=== PATIENT | female | born 1975 | race Caucasian/White ===

== ENCOUNTER 2024-04-15 16:19 | Inpatient (IN) | payer OTHER ==
[2024-04-15 17:53] VITALS: BMI 27.9
[2024-04-15] MEDS ORDERED: diazePAM 5 MG TABLET PO PRN (19:53)
[2024-04-15] MEDS ORDERED: ACETAMINOPHEN 325 MG TABLET (FP) PO PRN (19:55)
[2024-04-15] MEDS ORDERED: LOPERAMIDE HCL 2 MG CAPSULE PO PRN (19:55)
[2024-04-15] MEDS ORDERED: MAGNESIUM HYDROX 2400MG/30ML ORAL SUSPENSION 30 ML CUP PO PRN (19:55)
[2024-04-15] MEDS ORDERED: METHOCARBAMOL 500 MG TABLET PO PRN (19:55)
[2024-04-15] MEDS ORDERED: IBUPROFEN 400 MG TABLET (FP) PO PRN (19:55)
[2024-04-15] MEDS ORDERED: DICYCLOMINE HCL 10 MG CAPSULE PO PRN (19:55)
[2024-04-15] MEDS ORDERED: hydrOXYzine PAMOATE 25 MG CAPSULE (FP) PO PRN (19:55)
[2024-04-15] MEDS ORDERED: POLYETHYLENE GLYCOL (HEALTHYLAX) 3350 17 GM PACKET PO PRN (19:55)
[2024-04-15] MEDS ORDERED: IBUPROFEN 600 MG TABLET (FP) PO PRN (19:55)
[2024-04-15] MEDS ORDERED: BENZONATATE 200 MG CAPSULE PO PRN (19:55)
[2024-04-15] MEDS ORDERED: BENZOCAINE/MENTHOL (CHLORASEPTIC ) LOZENGE MM PRN (19:55)
[2024-04-15] MEDS ORDERED: MAG HYDROX/AL HYDROX/SIMETH 30 ML UNIT-DOSE CUP PO PRN (19:55)
[2024-04-15] MEDS ORDERED: BISMUTH SUBSALICYLATE 524 MG/30 ML PO PRN (19:55)
[2024-04-15] MEDS ORDERED: ONDANSETRON *ODT* 4 MG TABLET SL PRN (19:55)
[2024-04-15] MEDS ORDERED: guaiFENesin 600 MG TABLET.ER (FP) PO PRN (19:55)
[2024-04-15] MEDS ORDERED: diazePAM 5 MG TABLET ONE (20:17)
[2024-04-15] MEDS: diazePAM 5 MG TABLET PO ONE (20:19)
[2024-04-15] MEDS: MELATONIN 5 MG TABLETS PO SCH (21:18)
[2024-04-15] MEDS: THIAMINE 100 MG TABLET PO SCH (21:18)
[2024-04-15] MEDS: diazePAM 5 MG TABLET PO SCH (23:19)
[2024-04-16 08:53] VITALS: TEMP 97.8
[2024-04-16] MEDS: PRENATAL VITAMINS W/ FOLIC ACID TABLET (FP) PO SCH (10:04)
[2024-04-16 11:04] LABS: HEMATOCRIT 38.3 % (32.4-45.2); HEMOGLOBIN 12.5 GM/dL (10.7-15.3); MCH 29.2 pg (25.7-33.7); MCHC 32.5 g/dl (32.0-36.0); MEAN CELL VOLUME 89.8 fl (80-96); MEAN PLT VOLUME 8.2 fl (7.5-11.1); PLATELET COUNT 251 10^3/uL (134-434); RBC 4.26 M/mm3 (3.60-5.2); RDW 13.7 % (11.6-15.6); WHITE BLOOD COUNT 5.3 K/mm3 (4.0-10.0)
[2024-04-16 11:53] LABS: CHLORIDE 107 mmol/L (98-107); POTASSIUM 4.4 mmol/L (3.5-5.1); SODIUM 136 mmol/L (136-145)
[2024-04-16 11:56] LABS: ALBUMIN 3.1 g/dl (3.4-5.0); BLOOD UREA NITROGEN 15.2 mg/dL (7-18)
[2024-04-16 11:57] LABS: ANION GAP 5 mmol/L (4-13); CALCIUM 8.8 mg/dL (8.5-10.1); CO2 24 mmol/L (21-32)
[2024-04-16 11:59] LABS: SGOT/AST 22 U/L (15-37); SGPT/ALT 16 U/L (13-61)
[2024-04-16 12:00] LABS: CREATININE 0.7 mg/dL (0.55-1.3); GLUCOSE,RANDOM 104 mg/dL (74-106)
[2024-04-16 12:01] LABS: BILIRUBIN,TOTAL 0.2 mg/dL (0.2-1)
[2024-04-16 12:02] LABS: ALK PHOS 77 U/L (45-117)
[2024-04-16 12:33] VITALS: BP 103/61; PULSE 76; RESP 18
[2024-04-17] MEDS ORDERED: diazePAM 5 MG TABLET PO SCH (06:00)
[2024-04-18] MEDS ORDERED: diazePAM 5 MG TABLET PO SCH (06:00)
[2024-04-19] MEDS ORDERED: diazePAM 5 MG TABLET PO ONE (06:00)
== END 2024-04-16 12:57 | disposition left against medical advice (07) | DRG 770 ==
LOC: YASAS 16:19 → Y3N 20:21
PROVIDERS: ADMIT Allergy & Immunology; ATTEND Surgery
PROC: HZ2ZZZZ Detoxification Services for Substance Abuse Treatment (ICD-10-PCS; principal; 2024-04-15)
DX: F10.230 Alcohol dependence with withdrawal, uncomplicated (principal); F31.9 Bipolar disorder, unspecified; Z86.59 Personal history of other mental and behavioral disorders
CPT/HCPCS: 36415; 80053; 80305; 80307; 81025; 85027; 86780; 93005; 93010